=== PATIENT | male | born 1990 | race American Indian/Alaskan Native ===

== ENCOUNTER 2017-09-26 18:25 | Emergency (ER) | payer OTHER ==
[2017-09-26 18:58] VITALS: BP 125/76; PULSE 69; RESP 16; TEMP 98.7; O2SAT 99
--- NOTE | 2017-09-26 20:07 | ED PDOC ---
HPI: General Adult Time Seen by Provider: 09/26/17 19:45 Chief Complaint (Nursing): ENT Problem Chief Complaint (Provider): left ear pain History Per: Patient History/Exam Limitations: no limitations Onset/Duration Of Symptoms: Days (3 weeks) Current Symptoms Are (Timing): Still Present Additional Complaint(s): 27 y/o male presents with left ear pain x 3 weeks. Patient states he was seen at a urgent care 1 week ago and prescribed drops for ear wax, states it is not helping and pain persists. Denies fever, headache, nausea/vomiting, congestion , drainage from ear. Past Medical History Reviewed: Historical Data, Nursing Documentation, Vital Signs Vital Signs: Last Vital Signs Temp 98.7 F 09/26/17 18:56 Pulse 69 09/26/17 18:56 Resp 16 09/26/17 18:56 BP 125/76 09/26/17 18:56 Pulse Ox 99 09/26/17 18:56 - Medical History PMH: No Chronic Diseases - Surgical History Surgical History: No Surg Hx - Family History Family History: States: Unknown Family Hx - Living Arrangements Living Arrangements: With Family - Home Medications Home Medications: Ambulatory Orders Medication Instructions Recorded Acetaminophen [Tylenol 325mg tab] 2 tab PO PRN PRN 10/09/16 Ibuprofen [Motrin] 600 mg PO Q6 #20 tab 10/09/16 Ibuprofen [Motrin Tab] 1 tab PO Q6 PRN #20 tab 09/26/17 Neomycin/Polymyxin/Hydrocortis 4 drop OT TID 10 Days bottle 09/26/17 [Cortisporin Otic Susp] - Allergies Allergies/Adverse Reactions: Allergies Allergy/AdvReac Type Severity Reaction Status Date / Time No Known Allergies Allergy Verified 10/09/16 19:38 Review of Systems ROS Statement: Except As Marked, All Systems Reviewed And Found Negative ENT: Positive for: Ear Pain (left) Physical Exam - Reviewed Nursing Documentation Reviewed: Yes Vital Signs Reviewed: Yes - Physical Exam Appears: Positive for: Well, Non-toxic, No Acute Distress Head Exam: Positive for: ATRAUMATIC, NORMAL INSPECTION, NORMOCEPHALIC Skin: Positive for: Normal Color ENT: Positive for: TM Is/Are (Left EAC edema with purulent drainage noted. + tenderness with speculum inspection, + tenderness on left pinna/tragus manipulation. No mastoid swelling/erythema/tenderness bilaterally. TMs clear bilaterally). Negative for: Nasal Congestion, Pharyngeal Erythema, Tonsillar Exudate, Tonsillar Swelling Cardiovascular/Chest: Positive for: Regular Rate, Rhythm Respiratory: Positive for: Normal Breath Sounds Neurologic/Psych: Positive for: Alert, Oriented - ECG O2 Sat by Pulse Oximetry: 99 - Progress ED Course And Treament: Patient educated on findings, discharged with rx Cortisporin. Patient states he has appt to see ENT next week. Advised ibuprofen PRN pain. Return precautions given. Disposition - Clinical Impression Clinical Impression: Otitis externa - Patient ED Disposition Is Patient to be Admitted: No Counseled Patient/Family Regarding: Diagnosis, Need For Followup, Rx Given - Disposition Disposition: Routine/Home Disposition Time: 20:08 Condition: IMPROVED Prescriptions: Neomycin/Polymyxin/Hydrocortis [Cortisporin Otic Susp] 4 drop OT TID 10 Days bottle Instructions: Outer Ear Infection (DC) Forms: [facility] (N[place]ien) Print Language: GEORGI[place]
== END 2017-09-26 20:29 | disposition home or self-care (01) ==
LOC: H.ER 18:25
DX: H60.92 Unspecified otitis externa, left ear (principal)